=== PATIENT | male | born 1935 | race Hispanic/Latino ===

== ENCOUNTER 2017-02-03 07:32 | Inpatient (IN) | payer MEDICARE, OTHER ==
--- NOTE | 2017-01-20 09:45 | Anesthesia Consultation ---
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
[~2017-02-03 07:32] MED LIST: PEPCID PO NR
[2017-02-03] MEDS ORDERED: XYLOCAINE MPF 2% ONE (07:54)
[2017-02-03] MEDS ORDERED: DIPRIVAN 10 MG/ML IV ONE (07:54)
[2017-02-03] MEDS ORDERED: SUBLIMAZE ONE (07:54)
[2017-02-03] MEDS ORDERED: PEPCID PO NR (08:00)
[2017-02-03] MEDS: LACTATED RINGERS 1,000 ML IV SCH ×2 (08:35→21:56)
[2017-02-03] MEDS ORDERED: GARAMYCIN 120 MG in NACL 0.9% 100 ML IV ONE (08:50)
[2017-02-03 08:53] LABS: Basophils % (Auto) 1.3 % (0.0-1.8); Eosinophils % (Auto) 3.4 % (0.0-4.3); Hematocrit 45.7 % (35.5-45.6); Hemoglobin 14.9 gm/dl (11.8-15.2); Mean Corpuscular HGB Conc 33 % (32-34); Mean Corpuscular Hemoglobin 31 pg (28-32); Mean Corpuscular Volume 94 fl (84-94); Platelet Count 127 K/mm3 (140-440); Red Blood Count 4.88 M/mm3 (3.65-5.03); White Blood Count 4.2 K/mm3 (4.5-11.0)
[2017-02-03] MEDS ORDERED: VERSED IV ONE (08:56)
[2017-02-03] MEDS ORDERED: ANCEF/STERILE WATER 2 GM/20 ML IV NR (09:00)
[2017-02-03 09:03] LABS: INR 0.96 (0.87-1.13)
[2017-02-03 09:10] LABS: Alanine Aminotransferase 15 units/L (7-56); Albumin 3.9 g/dL (3.9-5); Albumin/Globulin Ratio 1.4 %; Alkaline Phosphatase 79 units/L (35-129); Anion Gap 13 mmol/L; BUN/Creatinine Ratio 18; Blood Urea Nitrogen 18 mg/dL (9-20); Calcium 8.8 mg/dL (8.4-10.2); Carbon Dioxide 30 mmol/L (22-30); Chloride 106.1 mmol/L (98-107); Glucose 104 mg/dL (75-100); Potassium 4.4 mmol/L (3.6-5.0); Sodium 145 mmol/L (137-145); Total Protein 6.6 g/dL (6.3-8.2)
[2017-02-03] MEDS ORDERED: NACL 0.9% IR ONE (09:27)
[2017-02-03] MEDS ORDERED: SORBITOL-MANNITOL IRRIG IR ONE (09:27)
--- NOTE | 2017-02-03 09:49 | Anesthesia Day of Surgery ---
Anesthesia Day of Surgery - Day of Surgery Patient Examined: Yes Patient H&P Reviewed: Yes Patient is NPO: Yes
[2017-02-03] MEDS ORDERED: GARAMYCIN/NS 120MG/100ML 120 MG/100 ML BAG IV ONE (10:00)
--- NOTE | 2017-02-03 11:25 | Post Operative Note ---
Date of procedure: 02/03/17 Pre-op diagnosis: urinary retention Post-op diagnosis: same Findings: bph Procedure: cysto turp Anesthesia: GETA Surgeon: RINA ODELL Estimated blood loss: 50-100ml Pathology: list (prostate `.) Specimen disposition: to lab Condition: stable Disposition: PACU
[2017-02-03] MEDS ORDERED: AMBIEN PO PRN (11:26)
[2017-02-03] MEDS ORDERED: NORCO 5/325 PO PRN (11:26)
[2017-02-03] MEDS ORDERED: ZOFRAN IV PRN (11:26)
[2017-02-03] MEDS ORDERED: TYLENOL PO PRN (11:26)
[2017-02-03] MEDS ORDERED: DECADRON ONE (11:31)
[2017-02-03] MEDS ORDERED: ANCEF/NS 1 GM/50 ML 1 GM/50 ML BAG IV SCH (12:00)
[2017-02-03] MEDS ORDERED: NACL 0.9% IR SCH (12:00)
[2017-02-03 12:22] LABS: Basophils % (Auto) 0.6 % (0.0-1.8); Eosinophils % (Auto) 2.8 % (0.0-4.3); Hematocrit 43.5 % (35.5-45.6); Hemoglobin 13.9 gm/dl (11.8-15.2); Mean Corpuscular HGB Conc 32 % (32-34); Mean Corpuscular Hemoglobin 30 pg (28-32); Mean Corpuscular Volume 95 fl (84-94); Platelet Count 119 K/mm3 (140-440); Red Blood Count 4.59 M/mm3 (3.65-5.03); Red Cell Distribution Width 14.2 % (13.2-15.2); White Blood Count 4.7 K/mm3 (4.5-11.0)
[2017-02-03 13:20] LABS: Alanine Aminotransferase 13 units/L (7-56); Albumin 3.4 g/dL (3.9-5); Albumin/Globulin Ratio 1.4 %; Alkaline Phosphatase 70 units/L (35-129); BUN/Creatinine Ratio 16; Blood Urea Nitrogen 16 mg/dL (9-20); Calcium 8.5 mg/dL (8.4-10.2); Carbon Dioxide 23 mmol/L (22-30); Chloride 106.7 mmol/L (98-107); Glucose 96 mg/dL (75-100); Potassium 4.5 mmol/L (3.6-5.0); Sodium 143 mmol/L (137-145); Total Protein 5.8 g/dL (6.3-8.2)
[2017-02-03 13:26] LABS: Anion Gap 18 mmol/L
--- NOTE | 2017-02-03 13:27 | Post Anesthesia Evaluation ---
- Post Anesthesia Evaluation Patient Participated: Yes Airway Patent: Yes Stable Respiratory Function: Yes Nausea/Vomiting: No Temp > 96.8F: Yes Pain Manageable: Yes Adequeate Hydration: Yes Anesthesia Complications: No Block Receding Appropriately: Not Applicable Patient on Ventilator: No
[2017-02-03] MEDS ORDERED: ROBINUL ONE (13:38)
--- NOTE | 2017-02-03 14:46 | Operative Report ---
PREOPERATIVE DIAGNOSIS: Urinary retention. POSTOPERATIVE DIAGNOSIS: Urinary retention. PROCEDURE: Cystoscopy, transurethral resection of prostate. SURGEON: Alonzo Vivar M.D. ANESTHESIA: General. FINDINGS: This is a gentleman with recurrent retention on intermittent catheterization. He now presents for transurethral resection of prostate. DESCRIPTION OF PROCEDURE: The patient was brought into the operating room and placed on the operating table. Following induction of anesthesia, placed in lithotomy position, prepped and draped in usual sterile fashion. Cystourethroscopy showed trilobar hypertrophy. The resectoscope was inserted and a circumferential resection was carried out. Middle lobe was taken down to capsular fibers. Hemostasis was assured. We were able to then see the orifices, which were preserved. The middle lobe was taken and then the lateral lobes were taken first on the right and then on the left. There was some apical tissue that dropped down and had to be resected as well. The patient tolerated the procedure well. The capsule was cauterized. No significant bleeding was encountered. Estimated blood loss less than 100 mL. A 3-way 24 catheter was inserted, [place] drip was minimally tinged to clear, brought to recovery in stable condition. JOB# [id number] CARISA/VANDANA
--- NOTE | 2017-02-03 14:49 | XRay Report ---
KUB: Urinary retention. Preliminary film in OR demonstrates orthopedic hardware stabilizing the L2 and L3 vertebral bodies. No obvious urinary tract calcification. No pelvic mass noted. Impression: No acute pathology identified.
[2017-02-03] MEDS ORDERED: NACL 0.9% 1,000 ML IR ONE ×2 (15:33→19:36)
[2017-02-03] MEDS: NACL 0.9% IR SCH ×2 (15:52→16:26)
[2017-02-03] MEDS: ceFAZolin 1 GM in NACL 0.9% 20 ML IV SCH (17:00)
[2017-02-03] MEDS: COLACE PO SCH (22:36)
[2017-02-04] MEDS: ceFAZolin 1 GM in NACL 0.9% 20 ML IV SCH ×2 (03:27→10:12)
[2017-02-04 04:33] LABS: Basophils % (Auto) 0.3 % (0.0-1.8); Eosinophils % (Auto) 0.1 % (0.0-4.3); Hematocrit 38.9 % (35.5-45.6); Mean Corpuscular HGB Conc 34 % (32-34); Mean Corpuscular Hemoglobin 32 pg (28-32); Mean Corpuscular Volume 94 fl (84-94); Platelet Count 130 K/mm3 (140-440); Red Blood Count 4.12 M/mm3 (3.65-5.03); Red Cell Distribution Width 13.7 % (13.2-15.2); White Blood Count 7.1 K/mm3 (4.5-11.0)
[2017-02-04 04:35] LABS: Anion Gap 15 mmol/L; BUN/Creatinine Ratio 14; Blood Urea Nitrogen 14 mg/dL (9-20); Calcium 8.3 mg/dL (8.4-10.2); Carbon Dioxide 27 mmol/L (22-30); Chloride 104.5 mmol/L (98-107); Glucose 118 mg/dL (75-100); Potassium 4.6 mmol/L (3.6-5.0); Sodium 142 mmol/L (137-145)
[2017-02-04] MEDS: COLACE PO SCH (10:12)
[2017-02-04 11:39] VITALS: BP 130/63
--- NOTE | 2017-02-04 12:38 | Discharge Summary ---
Short Stay Discharge Plan Activity: advance as tolerated, no driving until cleared by PCP Diet: low fat, low salt Special Instructions: home health RN Durable Medical Equipment Needed Upon Discharge: other (teach michelle care ) Follow up with: PRIMARY CARE, [Primary Care Provider] - 7 Days RINA ODELL MD [Staff Physician] - 7 Days
--- NOTE | 2017-02-04 12:39 | Progress Note ---
Assessment and Plan catheter irrigates clear labs ok home with miguel angel Cortes Date of service: 02/04/17 Principal diagnosis: AUR Objective - Constitutional Vitals: Vital Signs - 12hr 02/04/17 02/04/17 02/04/17 04:20 07:44 11:00 Temperature 97.8 F 98.8 F 98.5 F Pulse Rate 72 68 72 Respiratory 20 18 18 Rate Blood Pressure 147/69 Blood Pressure 132/62 130/63 [Left] O2 Sat by Pulse 94 95 96 Oximetry General appearance: Present: no acute distress - Neck Neck: supple - Respiratory Respiratory effort: normal Extremities: no ischemia - Gastrointestinal General gastrointestinal: Present: soft, non-tender - Labs CBC & Chem 7: 02/04/17 03:26 02/04/17 03:26 Labs: Abnormal lab results 02/03/17 02/04/17 02/04/17 Range/Units 11:52 03:26 03:26 Plt Count 130 L (140-440) K/mm3 [place] % (Auto) 7.6 H (0.0-7.3) % Seg Neutrophils % 71.8 H (40.0-70.0) % Glucose 118 H (75-100) mg/dL Calcium 8.3 L (8.4-10.2) mg/dL Total Protein 5.8 L (6.3-8.2) g/dL Albumin 3.4 L (3.9-5) g/dL
[2017-02-04] MEDS ORDERED: TRIPLE ANTIBIOTIC TP ONE (13:20)
== END 2017-02-04 13:55 | disposition home or self-care (01) | DRG 714 ==
LOC: OR 07:32 → 3B-SURG 11:26 → OBSVTOIN 02-04 08:59
PROVIDERS: ADMIT Urology; ATTEND Urology
PROC: 0VT08ZZ Resection of Prostate, Via Natural or Artificial Opening Endoscopic (ICD-10-PCS; principal; 2017-02-03)
DX: N40.1 Benign prostatic hyperplasia with lower urinary tract symptoms (principal); R33.8 Other retention of urine; Z87.891 Personal history of nicotine dependence; Z86.73 Personal history of transient ischemic attack (TIA), and cerebral infarction without residual deficits
CPT/HCPCS: 36415; 74000; 80048; 80053; 85025; 85610; 85730; 86850; 86900; 86901; 88305; A4217; A6250; G0378; J0690; J1100; J1580; J2250; J2405; J2704; J3010; J7120